=== PATIENT | male | born 1990 | race Caucasian/White ===

== ENCOUNTER 2023-10-29 10:21 | Emergency (ER) | payer OTHER ==
[~2023-10-29] VITALS: Ht 170.2 cm; Wt 84.1 kg
[2023-10-29] MEDS ORDERED: ceFAZolin 2 G in Water For Injection,Sterile 20 ML IV ONE (11:00)
[2023-10-29] MEDS ORDERED: NS 500 ML IV SCH (11:15)
[2023-10-29 11:31] LABS: BASO # 0.05 K/mm3 (0.02-0.10); EOS # 0.07 K/mm3 (0.04-0.40); EOS % 0.7 % (0.0-4.0); HEMATOCRIT 50.2 % (42.0-52.0); HEMOGLOBIN 16.8 g/dL (13.5-18.0); LYMPH# 2.88 K/mm3 (1.50-4.00); MEAN CELL VOLUME 91 fl (78-100); MEAN CORPUSCULAR HEMOGLOBIN 31 pg (27-31); MEAN CORPUSCULAR HGB CONC 34 g/dL (33-37); MEAN PLATELET VOLUME 10.1 fl (7.4-10.4); MONO # 0.77 K/mm3 (0.20-0.80); NEU # 5.94 K/mm3 (1.40-6.50); PLATELET COUNT 306 K/mm3 (130-400); RED BLOOD COUNT 5.51 M/mm3 (4.20-5.60); WHITE BLOOD COUNT 9.8 K/mm3 (4.8-10.8)
[2023-10-29] MEDS ORDERED: HYDROcodone/Acetaminophen 7.5-325 MG TAB PO ONE (11:45)
[2023-10-29 11:49] LABS: ALBUMIN 4.7 g/dL (3.5-5.0)
[2023-10-29 11:50] LABS: CALCIUM 9.7 mg/dL (8.3-10.5)
[2023-10-29 11:51] LABS: TOTAL PROTEIN 8.2 g/dL (6.4-8.3)
[2023-10-29 11:53] LABS: TOTAL BILIRUBIN 0.8 mg/dL (0.2-1.2)
[2023-10-29] MEDS ORDERED: CEPHALEXIN500 M1 PO (12:06)
[2023-10-29] MEDS ORDERED: NORCO 325 MG-51 TA1 PO (12:08)
[2023-10-29 12:46] VITALS: BP 154/89
== END 2023-10-29 12:50 | disposition home or self-care (01) ==
LOC: ED 10:21
PROVIDERS: Nurse Practitioner
DX: S62.521B Displaced fracture of distal phalanx of right thumb, initial encounter for open fracture (principal); F17.200 Nicotine dependence, unspecified, uncomplicated; W27.8XXA Contact with other nonpowered hand tool, initial encounter; Y92.89 Other specified places as the place of occurrence of the external cause; Y99.0 Civilian activity done for income or pay
CPT/HCPCS: 90715; J0665; J0690; J7040